=== PATIENT | female | born 1990 | race Two or more races ===

== ENCOUNTER → 2023-10-23 | Outpatient (CLI) | payer OTHER ==
[~2023-10-23] MED LIST: ISOVUE-370 76% 100ML VIAL As Ordered ONE
== END ==
LOC: M RAD 16:14
PROVIDERS: ATTEND Family Medicine
DX: R10.30 Lower abdominal pain, unspecified (principal); Z97.5 Presence of (intrauterine) contraceptive device

== ENCOUNTER 2024-02-11 09:20 | Day surgery (SDC) | payer OTHER ==
[~2024-02-11] VITALS: Ht 162.6 cm; Wt 76.3 kg
[~2024-02-11 09:20] MED LIST changes: -ISOVUE-370 76% 100ML VIAL As Ordered ONE; +LEXA1TAB PO; +SYNT137T7 PO
[2024-02-11] MEDS ORDERED: LIDOCAINE 2% 100MG/5ML SDV (FOR ANES.) As Ordered ONE (09:41)
[2024-02-11] MEDS ORDERED: ONDANSETRON 4MG 2ML VIAL As Ordered ONE (09:41)
[2024-02-11] MEDS ORDERED: KETOROLAC 60MG 2ML VIAL As Ordered ONE (09:41)
[2024-02-11] MEDS ORDERED: ROCURONIUM BROMIDE 50MG/5ML VIAL As Ordered ONE (09:41)
[2024-02-11] MEDS ORDERED: SUGAMMADEX SODIUM 500 MG/5 ML VIAL (BRIDION) As Ordered ONE (09:41)
[2024-02-11] MEDS ORDERED: fentaNYL 100 MCG/2 ML INJECTION As Ordered ONE (09:41)
[2024-02-11] MEDS ORDERED: propofoL 200 MG/20 ML VIAL As Ordered ONE (09:42)
[2024-02-11] MEDS ORDERED: MIDAZOLAM INJ 2MG/2ML VIAL As Ordered ONE (09:42)
[2024-02-11] MEDS ORDERED: dexmedeTOMIDine (4MCG/ML)200MCG/50ML BTL (PRECEDEX) As Ordered ONE (09:42)
[2024-02-11 10:13] LABS: HEMATOCRIT 39.9 % (36.0-47.0); HEMOGLOBIN 13.7 g/dl (12.0-15.5); MEAN CORPUSCULAR HGB CONC 34.3 g/dl (32.0-36.5); MEAN CORPUSCULAR VOLUME 93.2 fl (80.0-96.0); PLATELET COUNT, AUTOMATED 317 10^3/uL (150-450); RED BLOOD COUNT 4.28 10^6/uL (4.00-5.40); WHITE BLOOD COUNT 7.1 10^3/uL (4.0-10.0)
[2024-02-11] MEDS: SCOPOLAMINE 1MG TRANSDERMAL PATCH TOP ONE (10:21)
[2024-02-11] MEDS: ACETAMINOPHEN 500 MG TAB PO ONE (10:22)
[2024-02-11] MEDS ORDERED: THERTAB52 PO (10:31)
[2024-02-11] MEDS ORDERED: NOXI1TAB PO (10:31)
[2024-02-11] MEDS ORDERED: HYDROmorphone HCL 2MG/ML 1ML VIAL As Ordered ONE (11:32)
[2024-02-11] MEDS ORDERED: ePHEDrine SULFATE 25 MG/5 ML(5MG/ML) SYRINGE As Ordered ONE (11:32)
[2024-02-11] MEDS ORDERED: fentaNYL 100 MCG/2 ML INJECTION IV PRN (13:00)
[2024-02-11] MEDS ORDERED: METOCLOPRAMIDE INJ 10MG/2ML VIAL IV PRN (13:00)
[2024-02-11] MEDS ORDERED: diphenhydrAMINE 50MG/ML VIAL IV PRN (13:00)
[2024-02-11] MEDS ORDERED: ONDANSETRON 4MG 2ML VIAL IV PRN (13:00)
[2024-02-11] MEDS ORDERED: MEPERIDINE 25 MG/ML 1ML VIAL IV PRN (13:00)
[2024-02-11] MEDS: HYDROMORPHONE HCL 0.5 MG/ 0.5 ML SYRINGE IV PRN (13:23)
[2024-02-11] MEDS: oxyCODONE 5MG TAB PO PRN (13:33)
[2024-02-11 14:15] VITALS: BP 148/67; TEMP 97.8; O2SAT 96
== END 2024-02-11 15:11 | disposition home or self-care (01) ==
LOC: M SDC 09:20
PROVIDERS: ATTEND Student in an Organized Health Care Education/Training Program
DX: D27.1 Benign neoplasm of left ovary (principal); Z88.0 Allergy status to penicillin; Z88.8 Allergy status to other drugs, medicaments and biological substances; Z79.899 Other long term (current) drug therapy
CPT/HCPCS: 36415; 58662; 81025; 85027; 86850; 86900; 86901; 88305; J0665; J1100; J1171; J1885; J2250; J2405; J3010

== ENCOUNTER → 2024-05-14 | Outpatient (CLI) | payer OTHER ==
[~2024-05-14] MED LIST changes: +NOXI1TAB PO; +THERTAB52 PO
== END ==
LOC: M RAD 08:48
PROVIDERS: ATTEND Student in an Organized Health Care Education/Training Program
DX: R10.9 Unspecified abdominal pain (principal); Z97.5 Presence of (intrauterine) contraceptive device